=== PATIENT | male | born 1980 | race Caucasian/White ===

== ENCOUNTER 2023-02-20 01:45 | Emergency (ER) | payer OTHER ==
[~2023-02-20] VITALS: Ht 180.3 cm; Wt 104.3 kg
[2023-02-20 01:58] VITALS: BP 129/75; PULSE 78; RESP 16; TEMP 96.9; O2SAT 99
[2023-02-20] MEDS ORDERED: LORA10TA19 PO (03:32)
[2023-02-20 03:37] VITALS: BP 122/87; PULSE 84; RESP 16; O2SAT 96
== END 2023-02-20 03:37 | disposition home or self-care (01) ==
LOC: MED 01:45
DX: J06.9 Acute upper respiratory infection, unspecified (principal); Z79.899 Other long term (current) drug therapy
CPT/HCPCS: 71045; 99283